=== PATIENT | female | born 1990 ===

== ENCOUNTER 2023-05-31 09:56 | Outpatient (CLI) | payer OTHER | END 2023-05-31 09:57 | disposition home or self-care (01) | LOC: PRENATAL 09:56 | PROVIDERS: ATTEND Obstetrics & Gynecology Maternal & Fetal Medicine | DX: O35.3XX0 Maternal care for (suspected) damage to fetus from viral disease in mother, not applicable or unspecified (principal); O44.00 Complete placenta previa NOS or without hemorrhage, unspecified trimester; O26.20 Pregnancy care for patient with recurrent pregnancy loss, unspecified trimester; O09.529 Supervision of elderly multigravida, unspecified trimester; Z3A.19 19 weeks gestation of pregnancy ==